=== PATIENT | female | born 1960 | race Caucasian/White ===

== ENCOUNTER 2016-08-17 11:32 | Emergency (ER) | payer MEDICARE, OTHER ==
[~2016-08-17] VITALS: Ht 165.1 cm; Wt 80.0 kg
[~2016-08-17 11:32] MED LIST: CARB200T92 PO; CARV12.579 PO; DIAM PO; ERGO50007 PO; FURO40TA4 PO; LISI10TA2 PO
[2016-08-17 11:43] VITALS: Ht 165.1 cm; Wt 80.0 kg
[2016-08-17] MEDS ORDERED: SODIUM CHLORIDE 0.9% 1L BAG IV* STA (12:21)
[2016-08-17] MEDS ORDERED: CEFTRIAXONE 1 GM/50 ML (PMX) 50 ML IVPB STA (12:21)
[2016-08-17] MEDS ORDERED: ALBUTEROL 0.5% (NEB) 2.5 MG/0.5 ML AMP HHN STA (12:26)
[2016-08-17] MEDS ORDERED: IPRATROPIUM (NEB) 0.5 MG/2.5 ML AMP HHN ONE (12:30)
[2016-08-17 12:48] LABS: HEMOGLOBIN 12.6 g/dl (12.0-16.0); RED BLOOD COUNT 4.32 10^6/ul (4.20-5.40); UNCORRECTED WBC 8.1 10^3/ul (4.8-10.8); WHITE BLOOD COUNT 8.1 10^3/ul (4.8-10.8)
[2016-08-17 12:49] LABS: BASOPHILS % 0.5 % (0.0-2.0); EOSINOPHILS % 0.2 % (0.0-7.0); HEMATOCRIT 37.8 % (37.0-47.0); LYMPHOCYTES # 1.3 10^3/ul (0.8-2.9); LYMPHOCYTES % 16.1 % (15.0-51.0); MEAN CORPUSCULAR HEMOGLOBIN 29.2 pg (29.0-33.0); MEAN CORPUSCULAR HGB CONC 33.4 g/dl (32.0-37.0); MEAN CORPUSCULAR VOLUME 87.6 fl (82.0-101.0); MEAN PLATELET VOLUME 10.7 fl (7.4-10.4); MONOCYTE # 1.2 10^3/ul (0.3-0.9); MONOCYTES % 15.5 % (0.0-11.0); NEUTROPHIL # 5.5 10^3/ul (1.6-7.5); NEUTROPHILS % 67.7 % (39.0-77.0); PLATELET COUNT 125 10^3/UL (140-440); RED CELL DISTRIBUTION WIDTH 14.5 % (11.5-14.5)
[2016-08-17 12:50] LABS: CONDITION 1; LH ANALYZER COMMENTS 1
[2016-08-17 12:55] LABS: ALBUMIN 4.1 g/dl (3.3-4.9)
[2016-08-17 12:56] LABS: CHLORIDE 109 mmol/L (97-110); POTASSIUM 5.2 mmol/L (3.5-5.1); SODIUM 148 mmol/L (135-144)
[2016-08-17 12:58] LABS: ALBUMIN/GLOBULIN RATIO 1.07; ANION GAP 18 (8-16); ASPARTATE AMINO TRANSFERASE 19 IU/L (15-46); BILIRUBIN,INDIRECT 0.1 mg/dl (0-1.1); BILIRUBIN,TOTAL 0.1 mg/dl (0.2-1.3); CARBON DIOXIDE 26 mmol/L (21-31); CREATININE 2.06 mg/dl (0.44-1.00); TOTAL PROTEIN 7.9 g/dl (6.1-8.1)
[2016-08-17 12:59] LABS: ALANINE AMINOTRANSFERASE 20 IU/L (13-69); ALKALINE PHOSPHATASE 109 IU/L (42-121); BLOOD UREA NITROGEN 35 mg/dl (7-20); CALCIUM 8.8 mg/dl (8.4-10.2); GLUCOSE 95 mg/dl (70-220)
[2016-08-17 13:05] LABS: INR 1.08; PT RATIO 1.1
[2016-08-17 13:06] LABS: PARTIAL THROMBOPLASTIN TIME 25.7 Sec (25.0-35.0)
[2016-08-17] MEDS ORDERED: LEVO500T72 PO (13:18)
[2016-08-17] MEDS ORDERED: D-ME473S2 PO (13:19)
[2016-08-17 13:21] LABS: TROPONIN-I < 0.012 ng/ml (0.00-0.12)
[2016-08-17] MEDS ORDERED: ALBU2SYR10 PO (13:23)
[2016-08-17 13:35] LABS: ADD UMIC YES; URINE BILIRUBIN (Dip) NEGATIVE (NEGATIVE); URINE BLOOD (Dip) NEGATIVE (NEGATIVE); URINE COLOR LT. YELLOW (YELLOW); URINE GLUCOSE (Dip) NEGATIVE (NEGATIVE); URINE KETONES (Dip) NEGATIVE (NEGATIVE); URINE LEUKOCYTE ESTERASE (Dip) NEGATIVE (NEGATIVE); URINE NITRITE (Dip) NEGATIVE (NEGATIVE); URINE TOTAL PROTEIN (Dip) 2+ (NEGATIVE); URINE UROBILINOGEN (Dip) 0.2 E.U./dL (0.1-1.0)
[2016-08-17 13:45] LABS: BACTERIA,URINE FEW; URINE RBCS NONE SEEN /HPF (0)
[2016-08-17] MEDS ORDERED: ONDANSETRON 4 MG INJ IV STA (14:08)
[2016-08-17] MEDS ORDERED: NA POLYST SULFON 15 GM/60 ML BTL PO ONE (14:30)
--- NOTE | 2016-08-17 14:35 | RADRPT ---
PROCEDURE: XR Chest. CLINICAL INDICATION: Chest pain, sepsis TECHNIQUE: Single frontal view of the chest. COMPARISON: 02/21/2016 chest radiograph. FINDINGS: Interval removal of right-sided PICC line. Unchanged marked elevation of the left hemidiaphragm. Mild peribronchial thickening suggestive of small airways disease. No acute air space infiltrates. No pleural effusion or pneumothorax. Cardiac silhouette displaced to the right due to diaphragmatic elevation, unchanged. No acute osseous abnormalities. IMPRESSION: Mild peribronchial thickening suggestive of small airways disease. No acute air space infiltrates. RPTAT: AADD .Bandar Kilgore MD, MD Date Time Electronically viewed and signed by .Bandar Kilgore MD, MD on 08/17/2016 14:34 .B/
[2016-08-17 17:10] VITALS: BP 129/76; PULSE 90; RESP 18; TEMP 98.9
[2016-08-17] MEDS ORDERED: GUAI120S26 PO (17:21)
--- NOTE | 2016-08-18 15:48 | ERD ---
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 The patient herself is developmentally delayed. She has had a cough for s everal days, but they have taken notice that she seems to be sick since this morning. She is still taking p.o. well. The patient admits to having cough, but otherwise she says that she feels well. Media Account Executive wanted to make sure she did not have a pneumonia. She did see her primary care doctor 3 d ays ago and was put on Levaquin, of which she has finished 3 out of 7 pills. The patient never had any fevers during this period. She had an x-ray of her primary care physician's office and he had d iagnosed her with bronchitis. REVIEW OF SYSTEMS: A 10-point review of systems negative except as in the HPI. PAST MEDICAL HISTORY: Down syndrome, seizure, sleep apnea, history of pneumonia, hypertension. PAST SURGICAL HISTORY: Hysterectomy. SOCIAL HISTORY: Lives with solar mechanical engineer. Denies tobacco, alcohol or other drug use. FAMILY HISTORY: Noncontributory. PHYSICAL EXAMINATION VITAL SIGNS: Temperature 100.2, pulse 121, blood pressure 123/89, respirations 30, oxygen saturatio n 93% on room air. GENERAL: No acute distress, smiling and active. HEENT: Normocephalic, atraumatic. Tympanic membranes within normal limits. The mucous membranes o f the mouth moist. Oropharynx within normal limits. NECK: Supple, no JVD or meningismus. CARDIAC: Mild regular tachycardia, rate approximately 100, no murmurs. LUNGS: Clear to auscultation bilaterally. ABDOMEN: Soft, nontender, nondistended. No masses. EXTREMITIES: No cyanosis, clubbing or edema. SKIN: No rashes or other lesions. NEUROLOGIC: The patient is alert. She is mute, able to cooperate with neuro exam. Cranial nerves II through XII are intact, no focal deficits. DIAGNOSTIC DATA: CBC within normal limits except for a mildly low platelet count of 125, BMP within normal limits except for potassium of 5.2, mildly elevated sodium of 148, BUN of 35 and a creatinin e of 2.06. Compared to prior creatinine level with a baseline of 1.6, this is not much of an elevat ion, although it does suggest very mild acute renal insufficiency. Lactic acid is within normal dillard its at 1.1 showing that the patient likely not very dehydrated. Liver function tests were within no rmal limits. Troponin is negative. Urinalysis is negative for UTI and coagulation studies are with in normal limits with an INR of 1.1. IMAGING: Chest x-ray interpretation: Mild peribronchial thickening consistent with small airway di sease, no pulmonary edema, no pneumothorax, no infiltrates, no fractures. X-rays similar to prior x -rays of this patient. EKG interpretation: Sinus tachycardia, rate of 106, normal axis, no ST or T-wave changes concerning for acute ischemia. Normal EKG. 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 Of note, patient never had tachycardia as much as in triage when she was very excited and dooley ghing at the time. EMERGENCY DEPARTMENT COURSE/MEDICAL DECISION MAKING: Likely acute bronchitis causing cough. Initia l septic workup was performed. The patient was given Rocephin. She was given 30 mL/kg of IV fluids . She was also given a breathing treatment to help with cough. No cough was observed in the ER. T he patient's potassium returned mildly elevated and she was given Kayexalate and Zofran. No laborat ory abnormalities to confirm the diagnosis of sepsis and appeared healthy throughout her stay. She is in the first half of a course of Levaquin currently. I think this is an appropriate antibiotic a nd covers for typical and atypical respiratory infection, although this patient's infection may be v iral as there is no evidence of a serious bacterial infection. The patient is well appearing. Labo ratory abnormalities except for mildly elevated potassium. I a.m. going to discharge her with [facility] followup instructions to continue the Levaquin and obtain a repeat potassium level from her primary care doctor, or return to the ER for any concerning changes, or if she cannot get an appoint ment soon with her primary care doctor. DIAGNOSES 1. Acute bronchitis. 2. Hyperkalemia. 3. Renal insufficiency. DISPOSITION: Home in stable condition. Dictated By: MARGRET HSIEH/EUSEBIA Conf#: [id number] DID#: [id number]
== END 2016-08-17 17:30 | disposition home or self-care (01) ==
LOC: E/R 11:32
DX: J20.9 Acute bronchitis, unspecified (principal); E87.5 Hyperkalemia; N28.9 Disorder of kidney and ureter, unspecified; I10 Essential (primary) hypertension; J45.909 Unspecified asthma, uncomplicated; R40.2362 Coma scale, best motor response, obeys commands, at arrival to emergency department; R40.2142 Coma scale, eyes open, spontaneous, at arrival to emergency department; R40.2252 Coma scale, best verbal response, oriented, at arrival to emergency department; R07.9 Chest pain, unspecified
CPT/HCPCS: 51701; 71010; 80053; 81001; 83605; 84484; 85025; 85610; 85730; 87040; 87086; 93005; 94664; 96374; 96375; 99285; J0696; J2405; J7030; 81003

== ENCOUNTER 2018-02-05 14:57 | Inpatient (IN) | END 2018-02-08 21:00 | DRG 886 ==

== ENCOUNTER 2018-02-08 21:25 | Inpatient (IN) | END 2018-02-20 14:00 | disposition home health service (06) | DRG 92 ==

== ENCOUNTER → 2019-02-03 | Outpatient (CLI) | payer MEDICARE, OTHER ==
[~2019-02-03] MED LIST changes: +ACET250T22 PO; +CARB200T43 PO; -CARB200T92 PO; -DIAM PO; +ERGO500013 PO; -ERGO50007 PO
== END | disposition home or self-care (01) ==
LOC: LAB 10:31
PROVIDERS: ATTEND Internal Medicine
DX: C50.919 Malignant neoplasm of unspecified site of unspecified female breast (principal); D64.9 Anemia, unspecified; D68.59 Other primary thrombophilia
CPT/HCPCS: 71046; 80053; 85025; 85610; 85730; 93005

== ENCOUNTER → 2019-02-08 | Outpatient (CLI) | payer MEDICARE, OTHER | END | disposition home or self-care (01) | LOC: LAB 10:22 | PROVIDERS: ATTEND Internal Medicine | DX: J18.9 Pneumonia, unspecified organism (principal) | CPT/HCPCS: 71046; 80048; 85025 ==

== ENCOUNTER 2019-03-04 08:52 | Inpatient (IN) | payer MEDICARE, OTHER ==
[~2019-03-04] VITALS: Ht 154.9 cm; Wt 119.3 kg
[2019-03-04] VITALS (22 sets, daily range): BP systolic 87–151; BP diastolic 50–72; PULSE 76–88; RESP 16–23; Ht 154.9 cm; Wt 119.3 kg
[~2019-03-04 08:52] MED LIST changes: +CEFAZOLIN 2 GM/50 ML (PMX) 50 ML IVPB ONE; +SOD CHLORIDE 0.9% 1,000 ML IV ONE
--- NOTE | 2019-03-04 14:09 | PREAC ---
Date/Time of Note Date/Time of Note DATE: 03/04/19 TIME: 14:09 Anesthesia Eval and Record Evaluation Time Pre-Procedure Interview DATE: 03/04/19 TIME: 14:09 Age 58 Sex female NPO: 8 hrs Preoperative diagnosis Left breast CA Planned procedure Needle directed left partial mastectomy Past Medical History Past Medical History: Includes Cardio: HTN, Other (Cardiomyopathy) Pulm: Sleep Apnea Neuro: Seizure disorder, Other (Down's syndrome) GI: Morbid obesity Surgery & Anesthesia Issues No known issue Meds Anticoagulation: No Beta Yvonne within 24 hr: Yes Reported Medications Carvedilol* (Carvedilol*) 12.5 Mg Tablet, 12.5 MG PO BID, #60 TAB 02/03/18 Lisinopril* (Lisinopril*) 10 Mg Tablet, 10 MG PO DAILY, #30 TAB 02/03/18 Furosemide* (Furosemide*) 40 Mg Tablet, 40 MG PO DAILY, TAB 02/03/18 Ergocalciferol (Vitamin D2) (VITAMIN D2) 50,000 Unit Capsule, 42472 UNIT PO 2 TIMES A WEEK, CAP 02/03/18 Carbamazepine* (Carbamazepine* XR) 200 Mg Tab.er.12h, 200 MG PO TID, #60 TAB.SA TAKE 300MG-QAM, 200MG-2PM, 200MG-10PM 02/03/18 Acetazolamide* (Acetazolamide*) 250 Mg Tablet, 125 MG PO TID, #60 TAB 02/03/18 Meds reviewed: Yes Allergies Coded Allergies: phenytoin (Verified Allergy, Severe, RASH, SWOLLEN BODY, 03/04/19) Allergies Reviewed: Yes Labs/Studies Labs Reviewed: Reviewed by anesthesiologist Result Diagram: 03/04/1921 03/04/19 1036 Laboratory Tests 03/04/19 09:21 03/04/19 10:36 test: N/A Pre-procedure Exam Last vitals Vital Signs Date Temp Pulse Resp B/P (MAP) Pulse Ox O2 O2 Flow FiO2 Time Delivery Rate 03/04/19 96.6 77 16 151/72 96 Room Air 14:01 (98) Airway: Adequate mouth opening Mallampati: Mallampati II Teeth: Normal Lung: Normal Heart: Normal ASA Physical Status ASA physical status: 3 Emergency: None Planned Anesthetic General/MAC: LMA Planned Pain Management Parenteral pain med Pre-operative Attestations Prior to commencing anesthesia and surgery, the patient was re-evaluated, there was verification of: *The patient's identity *The results of appropriate recent lab work and preoperative vital signs *The above evaluation not changing prior to induction *Anesthetic plan, risk benefits, alternative and complications discussed with patient/family; questions answered; patient/family understands, accepts and wishes to proceed. DIRK KEITH MD Mar 04, 2019 14:09
[2019-03-04] MEDS ORDERED: MEPERIDINE 100 MG INJ ONE (14:24)
[2019-03-04] MEDS ORDERED: LIDOCAINE 2% (SDV) 5 ML INJ ONE (14:24)
[2019-03-04] MEDS ORDERED: SUCCINYLCHOLINE CHLORIDE 100 MG/5 ML SYG IV ONE (14:24)
[2019-03-04] MEDS ORDERED: PROPOFOL 20 ML ONE (14:24)
[2019-03-04] MEDS ORDERED: GLYCOPYRROLATE 0.4 MG INJ ONE (14:24)
[2019-03-04] MEDS ORDERED: NEOSTIGMINE 3 MG/3 ML SYRINGE ONE (14:24)
[2019-03-04] MEDS ORDERED: ROCURONIUM 50 MG INJ ONE (14:24)
[2019-03-04] MEDS ORDERED: MIDAZOLAM 1 MG/ML 2 ML INJ ONE (14:26)
[2019-03-04] MEDS ORDERED: ATROPINE 1 MG/10 ML SYRINGE ONE (15:02)
[2019-03-04] MEDS ORDERED: CEFAZOLIN 1 GM INJ ONE (15:03)
[2019-03-04] MEDS ORDERED: EPHEDrine 25 MG/5 ML SYG ONE (15:03)
[2019-03-04] MEDS ORDERED: ONDANSETRON 4 MG INJ ONE (15:33)
[2019-03-04] MEDS ORDERED: METOCLOPRAMIDE 10 MG INJ ONE (15:33)
[2019-03-04] MEDS ORDERED: D5W-0.45 NACL + KCL 20 MEQ 1,000 ML IV SCH (15:38)
--- NOTE | 2019-03-04 15:38 | SIPON ---
Date/Time of Note Date/Time of Note DATE: 03/04/19 TIME: 15:36 Operative Report Preoperative Diagnosis Invasive cancer left breast Postoperative Diagnosis Same Operation/Procedure Performed Left needle directed partial mastectomy Surgeon see signature line bankruptcy legal assistant Dr Medina Anesthesia: general Estimated blood loss: 10 - 50 ml's Transfusion Required none Specimen Left partial mastectomy specimen Grafts/Implants none Complications none GISELL OROZCO MD Mar 04, 2019 15:38
[2019-03-04] MEDS ORDERED: ACETAMINOPHEN 1000MG/100ML IV 100 ML IVPB PRN (16:00)
[2019-03-04] MEDS ORDERED: ONDANSETRON 4 MG INJ IV PRN (16:00)
[2019-03-04] MEDS ORDERED: morphine 2 MG INJ IV PRN (16:00)
--- NOTE | 2019-03-04 18:19 | OPR ---
DATE OF OPERATION: 03/04/2019 PREOPERATIVE DIAGNOSIS: Invasive cancer, left breast. POSTOPERATIVE DIAGNOSIS: Invasive cancer, left breast. PROCEDURE: Left needle-directed partial mastectomy. ANESTHESIA: General. ANESTHESIOLOGIST: Froylan Napoles MD SURGEON: Marck Jane MD REGISTRATION MANAGER: Beau Medina MD INDICATIONS FOR PROCEDURE: The patient is a 58-year-old female with comorbidities of developmental d elay and muteness. She underwent screening mammography and was found to have a suspicious lesion in the upper outer quadrant of her left breast. Core biopsy revealed invasive cancer. The tumor was re latively small, less than 1 cm and based on the fact that she has significant comorbidities including early stage renal failure, consideration was given that patient would most likely not be a good cand idate for chemotherapy; therefore, decision was made not to perform sentinel lymph node biopsy. This was explained to the family who agreed with this approach and they gave consent. The patient was th en scheduled for surgery. DESCRIPTION OF PROCEDURE: On the morning of surgery, the patient was brought to [facility] where she underwent localization of the lesion performed by attending radiologis t, Dr. Aneudy Nichols. Subsequently, she was brought to the operating theater, placed under general anesthesia. The left breast was prepped and draped in usual sterile fashion. A curvilinear incisio n was made in the region of the previously placed localization wire. Subcutaneous tissue was dissect ed with cautery. Skin edges were then elevated with skin hooks and wide circumferential dissection o f the tissue associated with the wire took placed, taking great care to ensure adequate margin. The specimen was elevated, transected, oriented and sent for radiographic confirmation of capture. Captu re was confirmed. Specimen was then sent for permanent pathologic analysis. The wound was irrigated . Minimal bleeding was controlled with cautery. The skin was then reapproximated with 4-0 Vicryl aranda tures and deep dermal interrupted fashion and final skin approximation took placed with 5-0 PDS sutur es in subcuticular fashion. Dermabond was then applied. The patient tolerated the procedure well. The estimated blood loss was 20 mL. There were no complications and the patient was transported in s table condition to the recovery room where circumferential compression dressing was applied. Dictated By: MARCK JANE MD TL/EUSEBIA Conf#: [id number] DID#: [id number] CC: ISABELL TAVAREZ MD;*End*
[2019-03-04] MEDS: DEXTROSE 5%-0.45% NACL 1,000 ML IV SCH (18:34)
--- NOTE | 2019-03-04 19:21 | PN ---
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 Core biopsy is revealing invasive cancer. The patient underwent a left needle-directed partial mastectomy. The patient was seen postop. The patient does have history of recurrent asthmatic bronchitis and dilated cardiomyopathy. PHYSICAL EXAMINATION: GENERAL: The patient was awake, alert, in no acute distress. VITAL SIGNS: Temperature 98.3, blood pressure 109/53, O2 sats 99% on 2 liters nasal cannula. HEENT: No pallor, cyanosis or icterus. LUNGS: Clinically clear. HEART: S1, S2 with no definite gallops. EXTREMITIES: No edema. LABORATORY DATA: WBC count 6.9, hematocrit 42.4, platelet count 176,000. Sodium 146, potassium 5.4, BUN 40, creatinine 1.64. IMPRESSION: 1. Left breast invasive carcinoma, status post left needle-directed partial mastectomy. 2. Dilated cardiomyopathy. 3. Mild renal failure. 4. Hyperkalemia. PLAN: We will continue gentle hydration. She is at risk for sleep apnea. We will closely monitor O 2 sats. Incentive spirometry and chest PT if necessary. Recheck renal functions in a.m. Narcotic a nalgesia per Dr. Jane. Fall precautions. Dictated By: RENETTA OBANDO MD SR/NTS Conf#: [id number] DID#: [id number] CC: ISABELL TAVAREZ MD; GISELL JANE MD;*End*
[2019-03-04] MEDS: ACETAZOLAMIDE 250 MG TAB PO SCH (21:39)
[2019-03-04] MEDS: carBAMAZepine (XR) 200 MG TABSR PO SCH (22:47)
[2019-03-05 03:00] VITALS: BP 102/56; PULSE 72; RESP 20
[2019-03-05] MEDS: DEXTROSE 5%-0.45% NACL 1,000 ML IV SCH (05:55)
[2019-03-05] MEDS ORDERED: carBAMAZepine (XR) 100 MG TABSR PO SCH (06:00)
--- NOTE | 2019-03-05 07:16 | PAC ---
Date/Time of Note Date/Time of Note DATE: 03/05/19 TIME: 07:16 Post-Anesthesia Notes Post-Anesthesia Note Last documented vital signs Vital Signs Date Temp Pulse Resp B/P (MAP) Pulse Ox O2 O2 Flow FiO2 Time Delivery Rate 03/05/19 98.1 72 20 102/56 100 Room Air 03:00 (71) 03/04/19 2.0 18:38 Activity: WNL Respiratory function: WNL Cardiovascular function: WNL Mental status: Baseline Pain reasonably controlled: Yes Hydration appropriate: Yes Nausea/Vomiting absent: Yes DIRK KEITH MD Mar 05, 2019 07:16
[2019-03-05 07:28] VITALS: BP 108/56; PULSE 65; RESP 20
[2019-03-05] MEDS ORDERED: FUROSEMIDE 40 MG TAB PO SCH (09:00)
[2019-03-05] MEDS: ACETAZOLAMIDE 250 MG TAB PO SCH (09:09)
--- NOTE | 2019-03-05 10:04 | PN ---
DATE: 03/05/2019 PHYSICAL EXAMINATION: GENERAL: The patient is awake, alert, in no acute distress. VITAL SIGNS: Temperature 98.5, blood pressure 108/56, O2 saturation 95% on 2 liters nasal cannula. LUNGS: Clinically clear. HEART: S1, S2 with no definite gallops. EXTREMITIES: No edema. LABORATORY DATA: WBC count 7.3, hematocrit 38. Sodium 140, potassium 5.5, BUN 34, creatinine of 1.5 2. Initial path report shows invasive ductal carcinoma. IMPRESSION: 1. Left breast invasive carcinoma status post left needle-directed partial mastectomy. 2. Dilated cardiomyopathy. 3. Mild renal failure. Renal function stable. 4. Borderline potassium. 5. History of recurrent asthmatic bronchitis. PLAN: The patient's overall medical condition is stable. We will continue treatment per Dr. Jane. Dictated By: RENETTA OBANDO MD SR/NTS Conf#: [id number] DID#: [id number] CC: GISELL JANE MD;*EndCC*
[2019-03-05] MEDS: carBAMAZepine (XR) 200 MG TABSR PO SCH (14:17)
[2019-03-05 15:50] VITALS: BP 164/72; PULSE 80; RESP 19
--- NOTE | 2019-03-05 17:33 | PN ---
DATE: 03/05/2019 Postop day #1 status post left breast partial mastectomy for invasive cancer. SUBJECTIVE: No complaint. OBJECTIVE: GENERAL: Alert, awake. HEENT: The patient is mute, but does not appear to be deaf. She answers some questions appropriatel y by facial expression and movement of the head. VITAL SIGNS: Temperature is 98.5, heart rate is 65, respirations 20, blood pressure 108/56, saturati on 95% up to 100% on 2 liters nasal cannula. SKIN: Dressing was loose and normally wrapped around, so we removed it and rewrapped it over the [facility] er dressing which has been applied in the operating room. The patient does not have any Matthew-Prat t drain. EXTREMITIES: The patient can move and lift both upper extremities. LABORATORY DATA: Sodium normal, potassium is 5.5 which is elevated. BUN is 34, which is elevated an d on admission, BUN was 40 and potassium was 5.4. Creatinine on admission was 1.69 which was elevate d and today, it is 1.52. Hematology: WBC 7300, hemoglobin 11.8, hematocrit 38.8, platelet count is 170. Coagulation: INR is 0.99. ASSESSMENT AND PLAN: This 58-year-old female who is disabled because of the developmental problems h as had diagnosis of invasive cancer of left breast by doing core biopsy on the basis of abnormal mamm ogram and she underwent operation yesterday. From surgical point of view, she is stable and she can be discharged home or wherever she lives but some medical problem exists yet and creatinine is not no rmal. It could be that this was the baseline for her and patient has been seen by Dr. Delgadillo w loki apparently is her PCP; therefore, we are going to leave it to Dr. Delgadillo to make a decision for discharging if he feels that the patient is suitable to be discharged. As was mentioned again fr om surgical point of view and my point of view, the patient can be discharged today to be followed up by Dr. Jane in his office next or the following after next . Dictated By: BINDU MONCADA MD PS/NTS Conf#: [id number] DID#: [id number] CC: GISELL JANE MD; ISABELL TAVAREZ MD;*EndCC*
[2019-03-06] MEDS ORDERED: ERGOCALCIFEROL 50,000 UNIT CAP PO SCH (09:00)
== END 2019-03-05 18:55 | disposition home or self-care (01) | DRG 582 ==
LOC: SDS 08:52 → REC 15:39 → MS1 16:50
PROVIDERS: ADMIT Surgery Surgical Oncology; ATTEND Surgery Surgical Oncology
PROC: 0HBU0ZZ Excision of Left Breast, Open Approach (ICD-10-PCS; principal; 2019-03-04 12:30)
DX: C50.912 Malignant neoplasm of unspecified site of left female breast (principal); R47.01 Aphasia; I42.0 Dilated cardiomyopathy; R62.50 Unspecified lack of expected normal physiological development in childhood; E87.5 Hyperkalemia; N19 Unspecified kidney failure
CPT/HCPCS: 80048; 80053; 85025; 85610; 85730; 88307; J0461; J0690; J2175; J2250; J2270; J2405; J2710; J2765; J7042